=== PATIENT | male | born 1990 | race Caucasian/White ===

== ENCOUNTER 2018-08-15 14:16 | Emergency (ER) | payer MEDICAID ==
[~2018-08-15] VITALS: Ht 172.7 cm; Wt 81.8 kg
[2018-08-15] MEDS ORDERED: HYDR-4031 PO (14:39)
[2018-08-15] MEDS ORDERED: FLUO-191 PO (14:39)
[2018-08-15] MEDS: IBUPROFEN 400 MG TABLET PO ONE (16:45)
[2018-08-15 17:08] LABS: AMPHET/METH SCREEN,URINE NEGATIVE (NEGATIVE); BARBITURATE SCREEN, URINE NEGATIVE (NEGATIVE); BENZODIAZEPINES SCREEN,URINE NEGATIVE (NEGATIVE); CANNABINOID SCREEN,URINE POSITIVE (NEGATIVE); COCAINE SCREEN,URINE NEGATIVE (NEGATIVE); METHADONE SCREEN, URINE NEGATIVE (NEGATIVE); OPIATE SCREEN,URINE NEGATIVE (NEGATIVE)
[2018-08-15 17:09] LABS: PHENCYCLIDINE SCREEN,URINE NEGATIVE (NEGATIVE)
[2018-08-15 17:30] VITALS: BP 125/87
== END 2018-08-15 17:52 | disposition home or self-care (01) ==
LOC: EMS 14:19
DX: F15.90 Other stimulant use, unspecified, uncomplicated (principal); F10.20 Alcohol dependence, uncomplicated; R51 Headache; F41.9 Anxiety disorder, unspecified; F32.9 Major depressive disorder, single episode, unspecified; F12.90 Cannabis use, unspecified, uncomplicated; F17.210 Nicotine dependence, cigarettes, uncomplicated; Y90.0 Blood alcohol level of less than 20 mg/100 ml
CPT/HCPCS: 36415; 80307; 99283; 99406; G0480

== ENCOUNTER 2018-08-20 12:20 | Emergency (ER) | payer SELFPAY ==
[~2018-08-20] VITALS: Ht 172.7 cm; Wt 81.8 kg
[~2018-08-20 12:20] MED LIST: FLUO-191 PO; HYDR-4031 PO
[2018-08-20] MEDS ORDERED: IBUPROFEN 600 MG TABLET PO ONE (14:15)
[2018-08-20] MEDS ORDERED: PERTUSS(ACELL),DIPH,TET VAC/PF 0.5 ML VIAL IM ONE (15:00)
[2018-08-20 15:11] VITALS: BP 115/60
== END 2018-08-20 15:22 | disposition home or self-care (01) ==
LOC: EMS 12:21
DX: R23.4 Changes in skin texture (principal); M79.672 Pain in left foot; F32.9 Major depressive disorder, single episode, unspecified; F41.9 Anxiety disorder, unspecified; F12.90 Cannabis use, unspecified, uncomplicated; F15.90 Other stimulant use, unspecified, uncomplicated; F17.210 Nicotine dependence, cigarettes, uncomplicated
CPT/HCPCS: 90471; 90715; 99406

== ENCOUNTER 2018-08-22 00:39 | Emergency (ER) | payer SELFPAY ==
[~2018-08-22] VITALS: Ht 172.7 cm; Wt 81.8 kg
[2018-08-22] MEDS ORDERED: KETOROLAC TROMETHAMINE 60 MG/2 ML VIAL IM ONE (01:30)
[2018-08-22 01:52] VITALS: BP 130/86
== END 2018-08-22 02:03 | disposition home or self-care (01) ==
LOC: EMS 00:39
DX: R51 Headache (principal); F32.9 Major depressive disorder, single episode, unspecified; F41.9 Anxiety disorder, unspecified; F12.90 Cannabis use, unspecified, uncomplicated; F15.90 Other stimulant use, unspecified, uncomplicated; F17.210 Nicotine dependence, cigarettes, uncomplicated; Z59.0 Homelessness
CPT/HCPCS: 96372; 99283; 99406; J1885

== ENCOUNTER 2019-02-25 13:57 | Emergency (ER) | payer MEDICAID ==
[~2019-02-25] VITALS: Ht 172.7 cm; Wt 81.8 kg
[2019-02-25 15:03] VITALS: BP 141/85
[2019-02-25 15:10] LABS: BASOPHILS % (AUTO) 0.6 % (0.0-2.0); EOSINOPHILS % (AUTO) 0.4 % (1.0-6.0); HEMATOCRIT 49.6 % (41-53); HEMOGLOBIN 17.1 g/dL (13.5-17.5); LYMPHOCYTES # (AUTO) 2.4 K/uL (1.0-4.8); LYMPHOCYTES % (AUTO) 22.2 % (22.0-44.0); MEAN CORPUSCULAR HEMOGLOBIN 32.2 pg (26.0-34.0); MEAN CORPUSCULAR HGB CONC 34.5 G/dL (31.0-37.0); MEAN CORPUSCULAR VOLUME 93 fL (80-100); MONOCYTES # (AUTO) 0.6 K/uL (0.1-1.0); MONOCYTES % (AUTO) 5.7 % (2.0-9.0); NEUTROPHILS # (AUTO) 7.7 K/uL (1.8-7.7); NEUTROPHILS % (AUTO) 71.1 % (40.0-70.0); PLATELET COUNT (AUTO) 317 K/uL (150-450); RED BLOOD CELL COUNT(AUTO) 5.31 MIL/uL (4.50-5.90); RED CELL DISTRIBUTION WIDTH 12.9 % (11.5-14.5)
[2019-02-25 15:19] LABS: ANION GAP 14 mmol/L (8-16); CALCIUM, TOTAL 8.7 mg/dL (8.8-10.5); CARBON DIOXIDE 23 mmol/L (22-29); CHLORIDE 103 mmol/L (98-107); CREATININE 0.96 mg/dL (0.60-1.30); GLOMERULAR FILTR. RATE CALC > 60 mL/min (>60); GLUCOSE,RANDOM 98 mg/dL (70-110); POTASSIUM 4.1 mmol/L (3.5-5.1); SODIUM SERUM 140 mmol/L (136-145); UREA NITROGEN, BLOOD 13 mg/dL (7-18)
[2019-02-25 15:25] LABS: ALANINE AMINOTRANSFERASE 31 U/L (12-78); ALKALINE PHOSPHATASE 83 U/L (46-116); ASPARTATE AMINOTRANSFERASE 16 U/L (15-37); BILIRUBIN,TOTAL 0.3 mg/dL (0.1-1.0); TOTAL PROTEIN, SERUM 7.4 g/dL (6.4-8.2)
== END 2019-02-25 15:57 | disposition home or self-care (01) ==
LOC: EMS 13:57
DX: F10.20 Alcohol dependence, uncomplicated (principal); F32.9 Major depressive disorder, single episode, unspecified; F41.9 Anxiety disorder, unspecified; F12.90 Cannabis use, unspecified, uncomplicated; F15.90 Other stimulant use, unspecified, uncomplicated; F17.210 Nicotine dependence, cigarettes, uncomplicated; Y90.0 Blood alcohol level of less than 20 mg/100 ml
CPT/HCPCS: 36415; 80053; 85025; 99283; 99406; G0480

== ENCOUNTER 2021-02-21 21:23 | Emergency (ER) | payer MEDICAID, OTHER ==
[~2021-02-21] VITALS: Ht 172.7 cm; Wt 81.8 kg
[2021-02-21] MEDS ORDERED: DIVA-112 PO (21:54)
[2021-02-21] MEDS ORDERED: BUSP5TAB20 PO (21:54)
[2021-02-21] MEDS ORDERED: RISP0.5T39 PO (21:54)
[2021-02-21 22:28] LABS: BASOPHILS % (AUTO) 0.8 % (0.0-2.0); EOSINOPHILS % (AUTO) 6.4 % (1.0-6.0); HEMATOCRIT 42.9 % (41-53); HEMOGLOBIN 14.9 g/dL (13.5-17.5); LYMPHOCYTES # (AUTO) 3.1 K/uL (1.0-4.8); LYMPHOCYTES % (AUTO) 42.4 % (22.0-44.0); MEAN CORPUSCULAR HEMOGLOBIN 31.6 pg (26.0-34.0); MEAN CORPUSCULAR HGB CONC 34.7 G/dL (31.0-37.0); MEAN CORPUSCULAR VOLUME 91 fL (80-100); MONOCYTES # (AUTO) 0.7 K/uL (0.1-1.0); MONOCYTES % (AUTO) 8.9 % (2.0-9.0); NEUTROPHILS % (AUTO) 41.5 % (40.0-70.0); PLATELET COUNT (AUTO) 330 K/uL (150-450); RED BLOOD CELL COUNT(AUTO) 4.71 MIL/uL (4.50-5.90); RED CELL DISTRIBUTION WIDTH 13.9 % (11.5-14.5)
[2021-02-21 22:36] LABS: ANION GAP 9 mmol/L (8-16); CALCIUM, TOTAL 8.6 mg/dL (8.8-10.5); CARBON DIOXIDE 26 mmol/L (22-29); CHLORIDE 105 mmol/L (98-107); CREATININE 1.18 mg/dL (0.60-1.30); GLOMERULAR FILTR. RATE CALC > 60 mL/min (>60); GLUCOSE,RANDOM 121 mg/dL (70-110); POTASSIUM 3.7 mmol/L (3.5-5.1); SODIUM SERUM 140 mmol/L (136-145); UREA NITROGEN, BLOOD 17 mg/dL (7-18)
[2021-02-21 22:42] LABS: ALANINE AMINOTRANSFERASE 27 U/L (12-78); ALKALINE PHOSPHATASE 96 U/L (46-116); ASPARTATE AMINOTRANSFERASE 15 U/L (15-37); BILIRUBIN,TOTAL 0.4 mg/dL (0.1-1.0); TOTAL PROTEIN, SERUM 6.9 g/dL (6.4-8.2)
[2021-02-21] MEDS ORDERED: RisperiDONE 1 MG TABLET PO ONE (23:00)
[2021-02-21] MEDS ORDERED: DiphenhydrAMINE HCL 25 MG CAPSULE PO ONE (23:00)
[2021-02-22 01:14] VITALS: BP 128/65
== END 2021-02-22 01:28 | disposition home or self-care (01) ==
LOC: EMS 21:28
DX: F31.9 Bipolar disorder, unspecified (principal); F41.9 Anxiety disorder, unspecified; F17.210 Nicotine dependence, cigarettes, uncomplicated; F12.90 Cannabis use, unspecified, uncomplicated; F19.90 Other psychoactive substance use, unspecified, uncomplicated
CPT/HCPCS: 80053; 85025; 99284; G0480

== ENCOUNTER 2022-02-23 09:10 | Inpatient (IN) | payer MEDICAID ==
[~2022-02-23] VITALS: Ht 172.7 cm; Wt 79.4 kg
[~2022-02-23 09:10] MED LIST changes: -FLUO-191 PO; -HYDR-4031 PO; +QUET100T PO
[2022-02-23] MEDS ORDERED: ZOLPIDEM TARTRATE 10 MG TABLET PO PRN (09:45)
[2022-02-23 12:05] VITALS: BP 118/78
[2022-02-23] MEDS: LORazepam 2 MG TABLET PO PRN (13:42)
[2022-02-23] MEDS: HALOPERIDOL 5 MG TABLET PO PRN (14:09)
[2022-02-23 16:22] VITALS: BP 112/62
[2022-02-24 06:00] VITALS: BP 116/70
[2022-02-24] MEDS ORDERED: ONDANSETRON HCL 4 MG TABLET PO PRN (06:15)
[2022-02-24] MEDS ORDERED: CloNIDine HCL 0.1 MG TABLET PO PRN (06:15)
[2022-02-24] MEDS ORDERED: PETROLATUM,WHITE 28 GM JELLY TP PRN (06:15)
[2022-02-24] MEDS ORDERED: ACETAMINOPHEN 325 MG TABLET PO PRN (06:15)
[2022-02-24] MEDS ORDERED: ALBUTEROL SULFATE HFA 90 MCG/PUFF 8 GM INHALER IH PRN (06:15)
[2022-02-24] MEDS ORDERED: GuaiFENesin/D-METHORPHAN [SUGAR-FREE] 200-20MG/10 ML SYRUP UDCUP PO PRN (06:15)
[2022-02-24] MEDS ORDERED: MAG HYDROX/AL HYDROX/SIMETH ES 30 ML SUSPENSION UDCUP PO PRN (06:15)
[2022-02-24] MEDS ORDERED: MAGNESIUM HYDROXIDE SUSPENSION 30 ML UDCUP PO PRN (06:15)
[2022-02-24] MEDS ORDERED: NICOTINE 14 MG/24 HOUR PATCH TD PRN (06:15)
[2022-02-24] MEDS ORDERED: DOCUSATE SODIUM 100 MG CAPSULE PO PRN (06:15)
[2022-02-24] MEDS: LORazepam 2 MG TABLET PO PRN ×4 (06:15→20:45)
[2022-02-24] MEDS ORDERED: IBUPROFEN 400 MG TABLET PO PRN (06:15)
[2022-02-24] MEDS ORDERED: LOPERAMIDE HCL 2 MG CAPSULE PO PRN (06:15)
[2022-02-24 09:25] VITALS: BP 132/79
[2022-02-24] MEDS: HALOPERIDOL 5 MG TABLET PO PRN ×2 (10:15→14:55)
[2022-02-24] MEDS: DIVALPROEX SODIUM 500 MG DR TABLET PO SCH ×2 (10:45→16:58)
[2022-02-24] MEDS: OLANZapine 10 MG TABLET PO SCH ×2 (10:45→16:58)
[2022-02-24 16:53] VITALS: BP 125/79
[2022-02-24] MEDS: QUEtiapine FUMARATE 100 MG TABLET PO SCH (20:44)
[2022-02-25 05:21] VITALS: BP 117/78
[2022-02-25 07:26] LABS: BASOPHILS % (AUTO) 0.4 % (0.0-2.0); EOSINOPHILS % (AUTO) 0.9 % (1.0-6.0); HEMATOCRIT 43.7 % (41-53); HEMOGLOBIN 15.2 g/dL (13.5-17.5); LYMPHOCYTES # (AUTO) 2.3 K/uL (1.0-4.8); LYMPHOCYTES % (AUTO) 32.8 % (22.0-44.0); MEAN CORPUSCULAR HEMOGLOBIN 30.6 pg (26.0-34.0); MEAN CORPUSCULAR HGB CONC 34.9 G/dL (31.0-37.0); MEAN CORPUSCULAR VOLUME 88 fL (80-100); MONOCYTES # (AUTO) 0.5 K/uL (0.1-1.0); MONOCYTES % (AUTO) 7.6 % (2.0-9.0); NEUTROPHILS # (AUTO) 4.1 K/uL (1.8-7.7); NEUTROPHILS % (AUTO) 58.3 % (40.0-70.0); PLATELET COUNT (AUTO) 397 K/uL (150-450); RED BLOOD CELL COUNT(AUTO) 4.99 MIL/uL (4.50-5.90); RED CELL DISTRIBUTION WIDTH 14.3 % (11.5-14.5)
[2022-02-25 07:44] LABS: HEMOGLOBIN A1C 5.8 % (3.8-5.6)
[2022-02-25 07:51] LABS: ALANINE AMINOTRANSFERASE 31 U/L (12-78); ALBUMIN 3.8 g/dL (3.4-5.0); ALKALINE PHOSPHATASE 88 U/L (46-116); ANION GAP 10 mmol/L (8-16); ASPARTATE AMINOTRANSFERASE 12 U/L (15-37); BILIRUBIN,TOTAL 0.2 mg/dL (0.1-1.0); CARBON DIOXIDE 25 mmol/L (22-29); CHLORIDE 104 mmol/L (98-107); CHOL/HDL RATIO 4.4 (4.2-7.3); CHOLESTEROL 195 mg/dL (131-200); CREATININE 0.76 mg/dL (0.60-1.30); GLOMERULAR FILTR. RATE CALC > 60 mL/min (>60); GLUCOSE,RANDOM 94 mg/dL (70-110); HDL CHOLESTEROL 44 mg/dL (40-60); LDL CHOL (CALC.) 116 mg/dL (0-130); POTASSIUM 4.3 mmol/L (3.5-5.1); SODIUM SERUM 139 mmol/L (136-145); THYROID STIMULATING HORMONE 0.55 uIU/mL (0.36-3.74); TOTAL PROTEIN, SERUM 7.4 g/dL (6.4-8.2); TRIGLYCERIDES 177 mg/dL (15-150); UREA NITROGEN, BLOOD 11 mg/dL (7-18)
[2022-02-25 08:21] VITALS: BP 113/78
[2022-02-25] MEDS: LORazepam 2 MG TABLET PO PRN ×2 (08:37→14:00)
[2022-02-25] MEDS: OLANZapine 10 MG TABLET PO SCH ×2 (08:37→16:01)
[2022-02-25] MEDS: DIVALPROEX SODIUM 500 MG DR TABLET PO SCH ×2 (08:37→16:01)
[2022-02-25 16:32] VITALS: BP 100/64
[2022-02-25] MEDS ORDERED: NICOTINE POLACRILEX 2 MG GUM CHEW PRN (18:30)
[2022-02-25] MEDS: QUEtiapine FUMARATE 100 MG TABLET PO SCH (20:30)
[2022-02-25] MEDS: NICOTINE POLACRILEX 2 MG LOZENGE PO PRN (20:31)
[2022-02-26 05:24] VITALS: BP 117/69
[2022-02-26] MEDS: LORazepam 2 MG TABLET PO PRN (08:03)
[2022-02-26] MEDS: DIVALPROEX SODIUM 500 MG DR TABLET PO SCH (08:04)
[2022-02-26] MEDS: OLANZapine 10 MG TABLET PO SCH (08:04)
[2022-02-26] MEDS: HALOPERIDOL 5 MG TABLET PO PRN (08:04)
[2022-02-26 08:29] VITALS: BP 113/66
[2022-02-26] MEDS: NICOTINE POLACRILEX 2 MG LOZENGE PO PRN (08:52)
[2022-02-26] MEDS ORDERED: DIVA-112 PO (11:23)
[2022-02-26] MEDS ORDERED: OLAN10TA74 PO (11:23)
== END 2022-02-26 12:50 | disposition home or self-care (01) | DRG 756 ==
LOC: B3A 11:11
PROVIDERS: ADMIT Psychiatry & Neurology Child & Adolescent Psychiatry; ATTEND Psychiatry & Neurology Child & Adolescent Psychiatry
DX: F41.9 Anxiety disorder, unspecified (principal); F10.10 Alcohol abuse, uncomplicated; F19.10 Other psychoactive substance abuse, uncomplicated
CPT/HCPCS: 80053; 80061; 83036; 84436; 84439; 84443; 85025; G0480; Q9967